=== PATIENT | female | born 1935 | race Caucasian/White ===

== ENCOUNTER 2023-08-01 17:58 | Inpatient (IN) | payer MEDICARE, SELFPAY ==
[2023-08-01] VITALS (7 sets, daily range): BP systolic 145–167; BP diastolic 48–101; PULSE 69–91; RESP 12–20; TEMP 37–37.1; O2SAT 95–97; BMI 22.1
--- NOTE | ~2023-08-01 | CT_ITS ---
EXAMINATION: CT abdomen pelvis wo con DATE: 08/01/2023 18:49 INDICATION: constipation, vomiting TECHNIQUE: Computed tomography (CT) of the abdomen and pelvis was performed without intravenous contr ast. Automated exposure control and iterative reconstruction technique were employed. The dose-length product was 408.80 mGy-cm. COMPARISON: None. FINDINGS: Lower thorax: Aortic and coronary artery calcification. Moderate hiatal hernia. Liver: Normal. Biliary/Gallbladder: Gallbladder is normal. No bile duct dilation. Pancreas: No mass or duct dilation. Spleen: Normal. Adrenals:Fat density left adrenal mass, consistent with an adenoma. Kidneys: 5.7 cm simple left midpole cyst. 1.8 cm indeterminate density left midpole renal mass. Small hyperdensities in the right midpole, likely representing proteinaceous or hemorrhagic cysts. GI tract: No small or large bowel dilation. A small normal-appearing appendiceal stump versus hypopla stic appendix is present. Diverticulosis without diverticulitis. Mesentery/Peritoneum: No ascites, mass, or free air. Retroperitoneum: No mass. Atherosclerotic abdominal aortic and/or arterial calcifications. Pelvis: Absent uterus. Wall thickening in an incompletely distended urinary bladder. Soft Tissues: Small uncomplicated fat-containing umbilical hernia. Bones: No acute osseous finding. Incompletely visualized but uncomplicated appearing left femoral dia rdware IMPRESSION: Bladder wall thickening, may be secondary to inadequate distention or cystitis. 1.8 cm indeterminate density left midpole mass. Recommend outpatient MRI or CT without and with contr ast for further evaluation. Reviewed, dictated and finalized at location K. IMPRESSION: Bladder wall thickening, may be secondary to inadequate distention or cystitis. 1.8 cm indeterminate density left midpole mass. Recommend outpatient MRI or CT without and with contrast for further evaluation.
--- NOTE | 2023-08-01 18:05 | ECG_ITS ---
Measurements Intervals [place] Rate: 72 P: 28 [place]: 229 QRS: -48 QRSD: 100 T: 53 QT: 400 QTc: 438 Interpretive Statements SINUS RHYTHM WITH FIRST DEGREE AV BLOCK INCOMPLETE RIGHT BUNDLE BRANCH BLOCK [90+ ms QRS DURATION, TERMINAL R IN V1/V2, 40+ ms S IN I/aVL/V4/V5/V6] LEFT ANTERIOR FASCICULAR BLOCK [QRS AXIS <= -45, QR IN I, RS IN II] ABNORMAL ECG NO PREVIOUS ECG AVAILABLE FOR COMPARISON Electronically Signed On 08-02-2023 7:05:08 CDT by Jorje Goss M.D.
[2023-08-01 18:22] LABS: Basophils Percent Auto 0.3 % (0.2-1.2); Hematocrit 27.4 % (37.0-47.0); Hemoglobin 8.7 g/dL (12.0-15.0); Immature Granulocyte Absolute 0.02 K/mm3 (0.00-0.031); Immature Granulocyte Percent A 0.2 % (0-0.5); Lymphocytes Absolute Auto 0.93 K/mm3 (0.9-3.2); Lymphocytes Percent Auto 9.7 % (18.3-44.2); Mean Corpuscular HGB Conc 31.8 g/dl (32-36); Mean Corpuscular Hemoglobin 29.5 pg (26-34); Mean Corpuscular Volume 92.9 fl (80-100); Mean Platelet Volume 10.3 fl (7.4-10.4); Monocytes Absolute Auto 1.6 K/mm3 (0.1-0.6); Monocytes Percent Auto 16.6 % (2.6-8.5); Neutrophils Percent Auto 73.2 % (45.5-73.1); Platelet Count Result 240 k/mm3 (150-375); Red Blood Count 2.95 M/mm3 (4.2-5.4); Red Cell Distribution Width 19.3 % (11.5-14.5); White Blood Count 9.6 K/mm3 (4.5-10.0)
--- NOTE | 2023-08-01 18:28 | ED.GENADULT ---
HPI - General Adult General Chief complaint: Nausea/Vomiting/Diarrhea Stated complaint: N/V, HUIZAR History of Present Illness HPI narrative: Patient is an 88-year-old female with history of dementia here with nausea and vomiting which occurred a few days ago. Patient and EMS note that she had some episodes of nausea and vomiting on and Wednesday. Patient notes that her last bowel movement was a few days ago. She currently denies any symptoms. She denies any current nausea or abdominal pain. The facility also noted that she has had some generalized fatigue and feeling unwell. Patient denies any cough, congestion, fever, chills. She does note some increased urinary frequency, no dysuria or hematuria. No chest pain or shortness of breath. Related Data Allergies Allergy/AdvReac Type Severity Reaction Status Date / Time Iodinated Contrast Media Allergy Unknown Verified 08/01/23 18:17 Review of Systems Review of Systems: All systems reviewed & are unremarkable except as noted in HPI and below Exam Narrative: GENERAL: Well-appearing, well-nourished, and in no acute distress. HEAD: Normocephalic, atraumatic. EYES: PERRLA and EOMI. ENT: Nares clear. Mucous membranes moist. NECK: Supple. CHEST: Clear to auscultation. No respiratory distress. HEART: Regular rate and rhythm. Normal peripheral pulses. ABDOMEN: Soft, nontender, nondistended. EXTREMITIES: Normal range of motion. No edema. SKIN: Warm, dry, no rash. NEURO: No focal deficits. Alert and oriented x3. PSYCH: Normal mood and affect. Course Course Emergency Course: Patient seen evaluated on arrival. In no acute distress, asymptomatic at this time. Given age, will workup for possible intraabdominal process including diverticular disease, bowel obstruction, UTI. No prior visits in our system. Initial blood pressure elevated to 152/101, otherwise normal. CBC grossly unremarkable aside from hemoglobin of 8.7, unsure of her baseline. Urine consistent with UTI. Will give 1g of rocephin while we await additional testing. Creatinine mildly elevated at 1.2, unsure of her baseline. CRP grossly normal. Initial troponin 0.036, no chest pain, will repeat. Swab for Covid, influenza, RSV negative. CT consistent with cystitis. Small left midpole kidney mass noted. Will inform patient and her family to have this followed with PCP. Patient tachycardic on the monitor to 110, I went to reevaluate her and she is holding an emesis bag, stating she just threw up. Will give IVF, zofran. Discussed case with patient and family at bedside. Given recurrent vomiting and need for IV abx, as well as mildly elevated troponin, will admit patient. They are agreeable. Spoke with Dr. De Santiago, accepts patient for hospitalization. Repeat troponin negative, daughter Nathalie Monteiro updated over the phone. I did ask patient her code status, she is unsure and would like to defer to her daughter. Vital Signs Vital signs: Vital Signs Temperature 98.6 F 08/01/23 18:12 Pulse Rate 91 08/01/23 18:12 Respiratory Rate 20 08/01/23 18:12 Blood Pressure 152/101 H 08/01/23 18:12 Pulse Oximetry 97 08/01/23 18:12 Oxygen Delivery Room Air 08/01/23 18:12 Temperature 98.6 F 08/01/23 18:12 Pulse Rate 78 08/01/23 21:42 Respiratory Rate 16 08/01/23 21:42 Blood Pressure 158/55 H 08/01/23 21:42 Pulse Oximetry 97 08/01/23 21:42 Oxygen Delivery Room Air 08/01/23 18:12 Medical Decision Making Vital Signs Vital Signs: Vital Signs Temperature 98.6 F 08/01/23 18:12 Pulse Rate 91 08/01/23 18:12 Respiratory Rate 20 08/01/23 18:12 Blood Pressure 152/101 H 08/01/23 18:12 Pulse Oximetry 97 08/01/23 18:12 Oxygen Delivery Room Air 08/01/23 18:12 Temperature 98.6 F 08/01/23 18:12 Pulse Rate 78 08/01/23 21:42 Respiratory Rate 16 08/01/23 21:42 Blood Pressure 158/55 H 08/01/23 21:42 Pulse Oximetry 97 08/01/23 21:42 Oxygen Delivery Room
[2023-08-01 18:31] LABS: Bacteria Urine 4+ /hpf; Need Manual Microscopic Reviewed; RBC Urine 51-100 /hpf (0-2); Squamous Epithelial Cell Urine Occasional /hpf (Few); WBC Urine 21-50 /hpf
[2023-08-01 18:34] LABS: INR 1.1; Prothrombin Time 14.3 Seconds (11.1-14.7)
[2023-08-01 18:35] LABS: Partial Thromboplastin Time 33.9 SECONDS (22.3-36.8)
[2023-08-01 18:36] LABS: Appearance Urine Turbid (Clear); Bilirubin Urine Negative (Negative); Blood Urine 3+ (Negative); Color Urine Yellow (Yellow); Glucose Urine UA Negative (Negative); Ketones Urine Trace mg/dL (Negative); Leukocyte Esterase Ur 3+ LEU/UL (Negative); Nitrate Urine Negative (Negative); Protein Urine 2+ mg/dL (Negative); Specific Grav Ur 1.014 (1.001-1.035); pH Urine 7.5 (5.0-9.0)
[2023-08-01 18:38] LABS: Add Urine Microscopic? YES
[2023-08-01 18:52] LABS: Alanine Aminotransferase 26 U/L (6-35); Albumin Level 4.1 g/dL (3.5-5.1); Alkaline Phosphatase 85 U/L (38-126); Anion Gap 8 mmol/L (8-16); Aspartate Amino Transferase 36 U/L (14-36); Bilirubin,Total 0.8 mg/dL (0.2-1.3); Blood Urea Nitrogen 26 mg/dL (7-17); CRP 2.3 mg/dL (<1.0); Calcium 8.4 mg/dL (8.4-10.2); Carbon Dioxide 24 mmol/L (22-30); Chloride 99 mmol/L (98-107); Estimated CRCL calculation 28 ml/min; Estimated Glomerular Filt Rate 43; Glucose 110 mg/dL (65-110); Lipase 217 U/L (23-300); Sodium 131 mmol/L (137-145); Troponin I 0.036 ng/mL (0.000-0.034)
[2023-08-01 19:00] LABS: Influenza A QL RT-PCR Negative (Negative); Influenza B QL RT-PCR Negative (Negative); RSV RNA, RT-PCR Negative (Negative); SARS-CoV-2 RNA PCR Negative (Negative)
--- NOTE | 2023-08-01 19:12 | PC.NURSE ---
Assumed care of pt at this time, report from Kimmie. Pt resting on stretcher, A&Ox4, with some confusion.
[2023-08-01] MEDS: SODIUM CHLORIDE 0.9% IV 1,000 ML 999 ML IV CONT (20:32)
[2023-08-01] MEDS: ONDANSETRON INJ 4 MG/2 ML VIAL IV PUSH (20:32)
--- NOTE | 2023-08-01 21:14 | PM.IMHP ---
H&P: HPI History of Present Illness Date/Time: 08/01/23 21:14 Chief Complaint: n/v Narrative: This is an 88 yo female with PMHx significant for HTN, Hypothyroidism, resides at [facility] facility. Patient brought to ED for evaluation due to n/v poor per oral intake, poor appetite, generalized malaise.In ED patient had broad work up done which revealed mildly elevated trop,urine analysis with numerous wbc's present.Patient has been admitted for further evaluation management and treatment. EXAMINATION: CT abdomen pelvis wo con DATE: 08/01/2023 18:49 INDICATION: constipation, vomiting TECHNIQUE: Computed tomography (CT) of the abdomen and pelvis was performed without intravenous contrast. Automated exposure control and iterative reconstruction technique were employed. The dose-length product was 408.80 mGy-cm. COMPARISON: None. FINDINGS: Lower thorax: Aortic and coronary artery calcification. Moderate hiatal hernia. Liver: Normal.? Biliary/Gallbladder: Gallbladder is normal. No bile duct dilation. Pancreas: No mass or duct dilation. Spleen: Normal. Adrenals:Fat density left adrenal mass, consistent with an adenoma. Kidneys: 5.7 cm simple left midpole cyst. 1.8 cm indeterminate density left midpole renal mass. Small hyperdensities in the right midpole, likely representing proteinaceous or hemorrhagic cysts. GI tract: No small or large bowel dilation. A small normal-appearing appendiceal stump versus hypoplastic appendix is present. Diverticulosis without diverticulitis. Mesentery/Peritoneum: No ascites, mass, or free air. Retroperitoneum: No mass. Atherosclerotic abdominal aortic and/or arterial calcifications. Pelvis: Absent uterus. Wall thickening in an incompletely distended urinary bladder. Soft Tissues: Small uncomplicated fat-containing umbilical hernia. Bones:? No acute osseous finding. Incompletely visualized but uncomplicated appearing left femoral hardware IMPRESSION: Bladder wall thickening, may be secondary to inadequate distention or cystitis. 1.8 cm indeterminate density left midpole mass. Recommend outpatient MRI or CT without and with contrast for further evaluation. Review of Systems Review of Systems: n/v Constitutional: Constitutional: Reports poor appetite and Reports weakness Eyes: Eyes: Denies change in vision ENT: Denies dysphagia, Denies vertigo, Denies dizziness and Denies odynophagia Cardiovascular: Cardiovascular: Denies chest pain, Denies radiating jaw, neck or arm pain and Denies palpitations Respiratory: Respiratory: Denies chest congestion, Denies cough, Denies excessive phlegm production and Denies dyspnea Gastrointestinal: Gastrointestinal: Denies abdominal pain, Denies dyspepsia, Denies heartburn, Denies diarrhea, Reports nausea and Reports vomiting Genitourinary: Genitourinary: Denies dysuria and Denies flank pain Musculoskeletal: Musculoskeletal: Denies back pain Integumentary/Breasts: Skin/Breast: Denies rash Neurologic: Denies vertigo, Denies dizziness, Denies focal weakness and Denies Sensory deficit (Neuro) Psychiatric: Psychiatric: Reports no additional psychiatric complaints and Reports as per HPI Endocrine: Endocrine: Denies cold intolerance, Denies flushing, Denies heat intolerance, Denies polyphagia, Denies polydipsia and Denies palpitations Hematologic/Lymphatic: Hematologic/Lymphatic: Reports no additional hematologic/lymphatic complaints and Reports as per HPI Allergic/Immunologic: Allergic/Immunologic: Reports no additional allergic/immunologic complaints and Reports as per HPI PMF Family History Family History (Updated 08/01/23 @ 22:34 by Tasha Calvillo RN) Father Diabetes mellitus Hypertension Coronary artery arteriosclerosis Sibling Diabetes mellitus Meds Home Medications and Allergies Home Medications Medication Instructions Recorded Confirmed Type aspirin 81 mg chewable tablet 81 mg PO DAILY 08/01/23 08/01/23 History citalop
[2023-08-01 21:39] LABS: Troponin I 0.029 ng/mL (0.000-0.034)
[2023-08-01] MEDS: ASPIRIN 81 MG CHEWABLE TABLET 324 MG PO (21:41)
--- NOTE | 2023-08-01 22:08 | ADMGEN ---
This patient, Raiza Sofia, was admitted to IMU Room 232-01. Patient/family oriented to hospital policies and general routines including ID bracelet, bed and alarms, visiting hours, pain management, procedures, bathroom and other care routines, personal items, smoking policy, room service/diet, and visiting hours. Information on how to activate the Rapid Response Team has been discussed. Patient/Family are encouraged to report perceived risks to care and to ask questions if they do not understand what they are told or what they should do.
[2023-08-02] VITALS (11 sets, daily range): BP systolic 126–196; BP diastolic 45–90; PULSE 67–86; RESP 14–20; TEMP 36.6–37; O2SAT 95–100
--- NOTE | 2023-08-02 | ECHO_ITS ---
Patient Info Name: Raiza Sofia Age: 88 years : 1935 Gender: Female Ht: 67 in Wt: 141 lbs BSA: 1.74 m2 HR: 83 bpm BP: 175 / 63 mmHg Heart Rhythm: Sinus Rhythm Technical Quality: Fair Exam Date: 08/02/2023 10:35 AM Exam Location: [facility] Pulmonary Exam Room: 232 Patient Status: Inpatient Admit Date: 08/01/2023 Staff Ordering Physician: Balta De Santiago MD Quality Control Specialist: Marcela Bryson RDCS Attending Provider: Balta De Santiago MD Referring Physician: Anyi MILTON; Exam Type: CA echo doppler color flow Study Info Indications - AM ELEVATED TROPONINS Complete two-dimensional, color flow and Doppler transthoracic echocardiogram is performed. Summary 1. Complete two-dimensional, color flow and Doppler transthoracic echocardiogram is performed. 2. Normal left ventricular size thickness and systolic function. 3. Grade 1 diastolic noncompliance. 4. Mildly sclerotic but nonstenotic aortic valve. Left Ventricle Left ventricular chamber dimension is normal. Left ventricular systolic function is normal, estimated at 65-70%. The left ventricular diastolic function is grade I diastolic dysfunction. Right Ventricle Right ventricular chamber dimension is normal. Left Atria Left atrial chamber dimension is normal. Right Atria Right atrial chamber dimension is normal. Aortic Valve The aortic valve is trileaflet. There is mild aortic valve sclerosis. Pulmonic Valve The pulmonic valve is not well visualized. Mitral Valve The mitral valve has normal leaflets. Tricuspid Valve The tricuspid valve leaflets are normal. Pericardium/Pleural The pericardium appears normal. Aorta The aortic root size at the sinus of Valsalva is normal. Left Ventricular Outflow Tract Name Value Normal LVOT 2D LVOT Diameter 2.0 cm LVOT Doppler LVOT Peak Gradient 5 mmHg LVOT Mean Gradient 3 mmHg LVOT VTI 26 cm LVOT VTI/AV VTI Ratio 0.6 LVOT Stroke Volume 84 ml LVOT CO 17.0 l/min LVOT CI 9.8 l/min/m2 Pulmonic Valve Name Value Normal RVOT Doppler RVOT Peak Gradient 1 mmHg PV Doppler PV Peak Gradient 3 mmHg Mitral Valve Name Value Normal MV Doppler MV Decel [place] 289 cm/s2 MV PHT 83 ms MV Area (PHT) 2.7 cm2 4.0-5.0 MV Diastolic Function
[2023-08-02] MEDS: LEVOTHYROXINE SODIUM 25 MCG TABLET PO (05:19)
[2023-08-02] MEDS: LOSARTAN POTASSIUM 50 MG TABLET PO (05:19)
--- NOTE | 2023-08-02 07:37 | PC.NURSE ---
Spoke with Nathalie Monteiro (daughter). Update given about patient care through the night.
[2023-08-02] MEDS: CHOLECALCIFEROL 1,000 UNITS TABLET 2000 UNITS PO (09:08)
[2023-08-02] MEDS: CITALOPRAM HYDROBROMIDE 20 MG TABLET PO (09:08)
[2023-08-02] MEDS: ASPIRIN 81 MG CHEWABLE TABLET PO (09:08)
--- NOTE | 2023-08-02 13:38 | PM.IMPN ---
Progress Note: A&P Assessment and Plan (1) Acute urinary tract infection: Code(s): N39.0 - Urinary tract infection, site not specified Status: Acute (2) N&V (nausea and vomiting): Code(s): R11.2 - Nausea with vomiting, unspecified Status: Acute (3) Poor appetite: Code(s): R63.0 - Anorexia Status: Acute (4) Elevated troponin: Code(s): R79.89 - Other specified abnormal findings of blood chemistry Status: Acute Plan 88-year-old female with history of dementia presented with nausea and vomiting since few days. No diarrhea. No abdominal pain. Has some generalized fatigue and feeling unwell. No fever chills cough shortness of breath. Anemia noted. UA positive for UTI started on Rocephin. CKD stage 3 creatinine 1.2. Initial troponin 0.036 followed by normal troponin level. CT abdomen pelvis with cystitis small left mid pole kidney mass noted. Continued intractable nausea vomiting admitted for treatment. Will continue Zofran p.r.n. EKG with nonspecific ST-T changes. Echo pending Left mid pole 5.7 cm cyst 1.8 cm indeterminate density left mid pole renal mass. Follow-up with urology as an outpatient basis DVT prophylaxis Lovenox Code status do not resuscitate Subjective Date/time seen: 08/02/23 13:38 Interval history: Feels better today. No chest pain shortness of breath. No more nausea vomiting. Review of Systems Review of Systems: All systems reviewed & are unremarkable except as noted in HPI and below Exam Narrative: GENERAL: The patient is well developed, not in acute distress HEENT: Nonicteric sclerae, PERRLA, EOMI. Oropharynx clear. Moist mucous membranes. Conjunctivae appear well perfused. CHEST: Chest wall is nontender. HEART: Regular rate and rhythm without murmur, rubs, or gallops LUNGS: Clear to auscultation bilaterally. no respiratory distress ABDOMEN: Soft, positive bowel sounds, non-tender, no organomegaly. SKIN: No rash, no excessive bruising, petechiae, or purpura. NEUROLOGIC: Cranial nerves II-XII intact, alert and oriented x 3, no gross motor deficits EXTREMITIES: no edema, cyanosis or clubbing Objective Data Vital Signs Vital Signs: Vital Signs - 24 hr 08/01/23 18:12 08/01/23 19:12 08/01/23 20:48 Temperature 98.6 F Pulse Rate 91 69 83 Respiratory Rate 20 19 12 Blood Pressure 152/101 H 167/48 H 152/61 H Pulse Oximetry 97 97 96 Oxygen Delivery Room Air 08/01/23 21:42 08/01/23 22:15 08/02/23 00:00 Temperature 98.8 F 98.2 F Pulse Rate 78 74 71 Respiratory Rate 16 16 16 Blood Pressure 158/55 H 145/53 H 144/45 H Pulse Oximetry 97 95 100 Oxygen Delivery 08/01/23 22:30 08/01/23 22:12 08/02/23 00:00 Temperature Pulse Rate 75 67 Respiratory Rate Blood Pressure Pulse Oximetry 95 Oxygen Delivery Room Air 08/02/23 00:00 08/02/23 02:00 08/02/23 04:00 Temperature 98.2 F Pulse Rate 70 76 Respiratory Rate 18 Blood Pressure 196/55 H Pulse Oximetry 100 97 Oxygen Delivery Room Air 08/02/23 05:03 08/02/23 04:00 08/02/23 04:00 Temperature Pulse Rate 84 83 Respiratory Rate 20 Blood Pressure 175/63 H Pulse Oximetry 96 96 Oxygen Delivery Room Air 08/02/23 06:00 08/02/23 08:00 08/02/23 12:00 Temperature 97.9 F 98.6 F Pulse Rate 74 70 69 Respiratory Rate 16 14 Blood Pressure 148/83 H 152/80 H Pulse Oximetry 95 96 Oxygen Delivery 08/02/23 08:00 08/02/23 08:00 08/02/23 10:00 Temperature Pulse Rate 69 70 Respiratory Rate Blood Pressure Pulse Oximetry 96 Oxygen Delivery Room Air Intake/Output Intake/Output: Intake & Output 07/30/23 07/31/23 08/01/23 08/02/23 23:59 23:59 23:59 23:59 Intake Total 1050 120 Output Total 200 900 Balance 850 -780 Meds/Results Medications: Active Medications Generic Name Dose Route Start Last Admin Trade Name Freq PRN Reason Stop Dose Admin Aspirin 81 mg 08/02/23 09:00 08/02/23 09:08 Aspi
[2023-08-02] MEDS: ONDANSETRON INJ 4 MG/2 ML VIAL IV PUSH (14:02)
[2023-08-02 14:32] LABS: Basophils Percent Auto 0.3 % (0.2-1.2); Hematocrit 28.7 % (37.0-47.0); Hemoglobin 9.1 g/dL (12.0-15.0); Immature Granulocyte Absolute 0.02 K/mm3 (0.00-0.031); Immature Granulocyte Percent A 0.3 % (0-0.5); Lymphocytes Absolute Auto 0.75 K/mm3 (0.9-3.2); Lymphocytes Percent Auto 9.9 % (18.3-44.2); Mean Corpuscular HGB Conc 31.7 g/dl (32-36); Mean Corpuscular Hemoglobin 29.1 pg (26-34); Mean Corpuscular Volume 91.7 fl (80-100); Mean Platelet Volume 10.7 fl (7.4-10.4); Monocytes Absolute Auto 1.1 K/mm3 (0.1-0.6); Monocytes Percent Auto 14.6 % (2.6-8.5); Neutrophils Absolute Auto 5.7 K/mm3 (1.3-6.7); Neutrophils Percent Auto 74.9 % (45.5-73.1); Platelet Count Result 247 k/mm3 (150-375); Red Blood Count 3.13 M/mm3 (4.2-5.4); Red Cell Distribution Width 19.2 % (11.5-14.5); White Blood Count 7.6 K/mm3 (4.5-10.0)
[2023-08-02 14:43] LABS: Alanine Aminotransferase 24 U/L (6-35); Albumin Level 4.1 g/dL (3.5-5.1); Alkaline Phosphatase 81 U/L (38-126); Anion Gap 9 mmol/L (8-16); Aspartate Amino Transferase 34 U/L (14-36); Bilirubin,Total 0.8 mg/dL (0.2-1.3); Blood Urea Nitrogen 22 mg/dL (7-17); Calcium 8.5 mg/dL (8.4-10.2); Carbon Dioxide 25 mmol/L (22-30); Chloride 98 mmol/L (98-107); Estimated CRCL calculation 35 ml/min; Estimated Glomerular Filt Rate 53; Glucose 127 mg/dL (65-110); Potassium 3.7 mmol/L (3.4-5.0); Sodium 132 mmol/L (137-145)
--- NOTE | 2023-08-02 15:12 | PC.NURSE ---
orders to transfer to med/tele- report given to Angie RN- called pt's daughter Nathalie and informed of transfer to room 259- pt transferred via bed accompanied by staff to [facility]/ med/tele
--- NOTE | 2023-08-02 15:50 | PC.NURSE ---
This patient, Raiza Sofia, was received from IMU on 08/02/23 at 1550. Patient/family oriented to unit policies and routines
[2023-08-02] MEDS: SIMVASTATIN 20 MG TABLET 40 MG PO (20:13)
[2023-08-02] MEDS: GABAPENTIN 300 MG CAPSULE PO (20:14)
[2023-08-02] MEDS: ACETAMINOPHEN 325 MG TABLET 650 MG PO (21:14)
[2023-08-03] VITALS (8 sets, daily range): BP systolic 151–179; BP diastolic 55–61; PULSE 59–93; RESP 17–18; TEMP 36.4–36.8; O2SAT 93–95
[2023-08-03] MEDS: LEVOTHYROXINE SODIUM 25 MCG TABLET PO (05:33)
[2023-08-03 08:24] LABS: Basophils Percent Auto 0.5 % (0.2-1.2); Eosinophils Percent Auto 0.5 % (0-4.4); Hematocrit 27.1 % (37.0-47.0); Hemoglobin 8.7 g/dL (12.0-15.0); Immature Granulocyte Absolute 0.01 K/mm3 (0.00-0.031); Immature Granulocyte Percent A 0.2 % (0-0.5); Lymphocytes Absolute Auto 0.84 K/mm3 (0.9-3.2); Lymphocytes Percent Auto 13.8 % (18.3-44.2); Mean Corpuscular HGB Conc 32.1 g/dl (32-36); Mean Corpuscular Hemoglobin 29.1 pg (26-34); Mean Corpuscular Volume 90.6 fl (80-100); Mean Platelet Volume 10.1 fl (7.4-10.4); Monocytes Absolute Auto 1.1 K/mm3 (0.1-0.6); Monocytes Percent Auto 17.3 % (2.6-8.5); Neutrophils Absolute Auto 4.1 K/mm3 (1.3-6.7); Neutrophils Percent Auto 67.7 % (45.5-73.1); Platelet Count Result 225 k/mm3 (150-375); Red Blood Count 2.99 M/mm3 (4.2-5.4); Red Cell Distribution Width 19.6 % (11.5-14.5); White Blood Count 6.1 K/mm3 (4.5-10.0)
[2023-08-03] MEDS: CHOLECALCIFEROL 1,000 UNITS TABLET 2000 UNITS PO (08:42)
[2023-08-03] MEDS: ASPIRIN 81 MG CHEWABLE TABLET PO (08:42)
[2023-08-03] MEDS: LOSARTAN POTASSIUM 50 MG TABLET PO (08:42)
[2023-08-03] MEDS: CITALOPRAM HYDROBROMIDE 20 MG TABLET PO (08:44)
[2023-08-03] MEDS: ENOXAPARIN 30 MG/0.3 ML SYRINGE SUB-Q (08:44)
[2023-08-03 09:03] LABS: Alanine Aminotransferase 21 U/L (6-35); Albumin Level 3.7 g/dL (3.5-5.1); Alkaline Phosphatase 72 U/L (38-126); Anion Gap 8 mmol/L (8-16); Aspartate Amino Transferase 31 U/L (14-36); Bilirubin,Total 0.6 mg/dL (0.2-1.3); Blood Urea Nitrogen 21 mg/dL (7-17); Calcium 8.3 mg/dL (8.4-10.2); Carbon Dioxide 23 mmol/L (22-30); Chloride 101 mmol/L (98-107); Estimated CRCL calculation 35 ml/min; Estimated Glomerular Filt Rate 53; Glucose 95 mg/dL (65-110); Magnesium 2.1 mg/dL (1.6-2.3); Potassium 3.9 mmol/L (3.4-5.0); Sodium 132 mmol/L (137-145)
--- NOTE | 2023-08-03 13:48 | PM.IMPN ---
Progress Note: A&P Assessment and Plan (1) Acute urinary tract infection: Code(s): N39.0 - Urinary tract infection, site not specified Status: Acute (2) N&V (nausea and vomiting): Code(s): R11.2 - Nausea with vomiting, unspecified Status: Acute (3) Poor appetite: Code(s): R63.0 - Anorexia Status: Acute (4) Elevated troponin: Code(s): R79.89 - Other specified abnormal findings of blood chemistry Status: Acute Plan 88-year-old female with history of dementia presented with nausea and vomiting since few days. No diarrhea. No abdominal pain. Has some generalized fatigue and feeling unwell. No fever chills cough shortness of breath. Anemia noted. UA positive for UTI started on Rocephin. CKD stage 3 creatinine 1.2. Initial troponin 0.036 followed by normal troponin level. CT abdomen pelvis with cystitis small left mid pole kidney mass noted. Continued intractable nausea vomiting admitted for treatment. Will continue Zofran p.r.n. EKG with nonspecific ST-T changes. Echo 08/02/2023 with normal ejection fraction grade 1 diastolic noncompliance no significant valvular abnormality. Dysphagia will get esophagogram further evaluate. Will add PPI Left mid pole 5.7 cm cyst 1.8 cm indeterminate density left mid pole renal mass. Follow-up with urology as an outpatient basis DVT prophylaxis Lovenox Code status do not resuscitate Subjective Date/time seen: 08/03/23 13:48 Interval history: reports some dysphagia. Some nausea persist but no vomiting. Tolerated diet yesterday. Dysphagia and intermittent unclear how long this been going on Review of Systems Review of Systems: All systems reviewed & are unremarkable except as noted in HPI and below Exam Narrative: GENERAL: The patient is well developed, not in acute distress HEENT: Nonicteric sclerae, PERRLA, EOMI. Oropharynx clear. Moist mucous membranes. Conjunctivae appear well perfused. CHEST: Chest wall is nontender. HEART: Regular rate and rhythm without murmur, rubs, or gallops LUNGS: Clear to auscultation bilaterally. no respiratory distress ABDOMEN: Soft, positive bowel sounds, non-tender, no organomegaly. SKIN: No rash, no excessive bruising, petechiae, or purpura. NEUROLOGIC: Cranial nerves II-XII intact, alert and oriented x 3, no gross motor deficits EXTREMITIES: no edema, cyanosis or clubbing Objective Data Vital Signs Vital Signs: Vital Signs - 24 hr 08/02/23 14:00 08/02/23 16:00 08/02/23 20:00 Temperature 98.6 F Pulse Rate 76 76 81 Respiratory Rate 18 Blood Pressure 126/90 Pulse Oximetry 96 Oxygen Delivery 08/02/23 20:06 08/02/23 20:00 08/03/23 00:00 Temperature Pulse Rate 86 67 Respiratory Rate Blood Pressure Pulse Oximetry Oxygen Delivery Room Air 08/03/23 04:00 08/03/23 05:22 08/03/23 08:40 Temperature 98.2 F Pulse Rate 59 L 72 73 Respiratory Rate 17 Blood Pressure 153/61 H 179/59 H Pulse Oximetry 95 93 Oxygen Delivery 08/03/23 08:00 Temperature Pulse Rate Respiratory Rate Blood Pressure Pulse Oximetry Oxygen Delivery Room Air Intake/Output Intake/Output: Intake & Output 07/31/23 08/01/23 08/02/23 08/03/23 23:59 23:59 23:59 23:59 Intake Total 1050 270 660 Output Total 200 900 Balance 850 -711 660 Meds/Results Medications: Active Medications Generic Name Dose Route Start Last Admin Trade Name Freq PRN Reason Stop Dose Admin Acetaminophen 650 mg 08/02/23 20:44 08/02/23 21:14 Acetaminophen 325 Mg Tablet PO 650 mg Q4H PRN Administration pain or fever Aspirin 81 mg 08/02/23 09:00 08/03/23 08:42 Aspirin 81 Mg Chewable Tablet PO 81 mg DAILY LORENA Administration Citalopram Hydrobromide 20 mg 08/02/23 09:00 08/03/23 08:44 Citalopram Hydrobromide 20 Mg Tablet PO 20 mg DAILY LORENA Administration Enoxaparin Sodium 30 mg 08/03/23 09:00 08/03/23 08:44 Enoxaparin 30 Mg/0.3 Ml Sy
[2023-08-03] MEDS: PANTOPRAZOLE 40 MG TABLET PO (14:12)
[2023-08-03] MEDS: ONDANSETRON INJ 4 MG/2 ML VIAL IV PUSH (21:30)
[2023-08-03] MEDS: GABAPENTIN 300 MG CAPSULE PO (21:30)
[2023-08-03] MEDS: SIMVASTATIN 20 MG TABLET 40 MG PO (21:30)
[2023-08-04 00:04] VITALS: PULSE 78
[2023-08-04 04:00] VITALS: PULSE 63
[2023-08-04 05:12] LABS: Basophils Percent Auto 0.6 % (0.2-1.2); Eosinophils Percent Auto 0.4 % (0-4.4); Hematocrit 29.5 % (37.0-47.0); Hemoglobin 9.3 g/dL (12.0-15.0); Immature Granulocyte Absolute 0.03 K/mm3 (0.00-0.031); Immature Granulocyte Percent A 0.4 % (0-0.5); Lymphocytes Absolute Auto 1.42 K/mm3 (0.9-3.2); Lymphocytes Percent Auto 19.9 % (18.3-44.2); Mean Corpuscular HGB Conc 31.5 g/dl (32-36); Mean Corpuscular Hemoglobin 28.9 pg (26-34); Mean Corpuscular Volume 91.6 fl (80-100); Mean Platelet Volume 10.7 fl (7.4-10.4); Monocytes Absolute Auto 1.1 K/mm3 (0.1-0.6); Monocytes Percent Auto 15.3 % (2.6-8.5); Neutrophils Absolute Auto 4.5 K/mm3 (1.3-6.7); Neutrophils Percent Auto 63.4 % (45.5-73.1); Platelet Count Result 251 k/mm3 (150-375); Red Blood Count 3.22 M/mm3 (4.2-5.4); Red Cell Distribution Width 19.3 % (11.5-14.5); White Blood Count 7.1 K/mm3 (4.5-10.0)
[2023-08-04 05:24] LABS: Alanine Aminotransferase 19 U/L (6-35); Albumin Level 3.8 g/dL (3.5-5.1); Alkaline Phosphatase 71 U/L (38-126); Anion Gap 8 mmol/L (8-16); Aspartate Amino Transferase 28 U/L (14-36); Bilirubin,Total 0.6 mg/dL (0.2-1.3); Blood Urea Nitrogen 20 mg/dL (7-17); Calcium 8.3 mg/dL (8.4-10.2); Carbon Dioxide 24 mmol/L (22-30); Chloride 100 mmol/L (98-107); Estimated CRCL calculation 32 ml/min; Estimated Glomerular Filt Rate 47; Glucose 84 mg/dL (65-110); Magnesium 2.3 mg/dL (1.6-2.3); Potassium 3.8 mmol/L (3.4-5.0); Sodium 132 mmol/L (137-145)
[2023-08-04] MEDS: LEVOTHYROXINE SODIUM 25 MCG TABLET PO (05:33)
[2023-08-04 08:00] VITALS: BP 135/63; PULSE 67; PULSE 71; RESP 14; TEMP 36.8; O2SAT 95
[2023-08-04] MEDS: ASPIRIN 81 MG CHEWABLE TABLET PO (11:30)
[2023-08-04] MEDS: CHOLECALCIFEROL 1,000 UNITS TABLET 2000 UNITS PO (11:30)
[2023-08-04] MEDS: ENOXAPARIN 30 MG/0.3 ML SYRINGE SUB-Q (11:30)
[2023-08-04] MEDS: LOSARTAN POTASSIUM 50 MG TABLET PO (11:30)
[2023-08-04] MEDS: CITALOPRAM HYDROBROMIDE 20 MG TABLET PO (11:30)
[2023-08-04] MEDS: PANTOPRAZOLE 40 MG TABLET PO (11:31)
[2023-08-04] MEDS: ONDANSETRON INJ 4 MG/2 ML VIAL IV PUSH (11:33)
--- NOTE | 2023-08-04 11:48 | PM.DS ---
DS: Admitting Diagnosis Discharge Date 08/04/23 Admitting Diagnosis nausea DS: Discharge Diagnosis Discharge Diagnosis (1) Elevated troponin: Code(s): R79.89 - Other specified abnormal findings of blood chemistry Status: Acute (2) Poor appetite: Code(s): R63.0 - Anorexia Status: Acute (3) N&V (nausea and vomiting): Code(s): R11.2 - Nausea with vomiting, unspecified Status: Acute (4) Acute urinary tract infection: Code(s): N39.0 - Urinary tract infection, site not specified Status: Acute (5) Left kidney mass: Code(s): N28.89 - Other specified disorders of kidney and ureter Status: Acute DS: Summary Hospital Course Hospital Course: 88F w/ PMH HTN, hypothyroidism presented with nausea and vomiting. she was dx with UTI and treated inpatient with ceftraixone. urine cultures were not helpful. she improved, discharged home in stable condition on 08/04 with another 2 days of macrobid. she is to f/u with PCP for this issue and an incidental left kidney cyst in 1 week. More than 30 minutes spent on discharge planning and documentation. Time Spent with Patient Time attestation: Total time spent providing and/or coordinating discharge services: Exam Const: General: cooperative and no acute distress Resp: Effort & Inspection: normal respiratory effort Auscultation: clear to auscultation bilaterally Cardio: Rate: regular rate Rhythm: regular rhythm Heart sounds: S1 normal heart sound present and S2 normal heart sound present GI: GI Palp: No abdominal tenderness Auscultation: normal bowel sounds DS: Data Data Completed and Pending Labs on day of discharge: Labs from last 24 hours 08/04/23 04:30 WBC 7.1 RBC 3.22 L Hgb 9.3 L Hct 29.5 L MCV 91.6 MCH 28.9 MCHC 31.5 L RDW 19.3 H Plt Count 251 MPV 10.7 H Immature Gran % (Auto) 0.4 Neut % (Auto) 63.4 Lymph % (Auto) 19.9 [place]ff[place] % (Auto) 15.3 H Eos % (Auto) 0.4 Baso % (Auto) 0.6 Lymph # (Auto) 1.42 [place]ffie # (Auto) 1.1 H Eos # (Auto) 0.0 Baso # (Auto) 0.0 Abs Immat Gran (auto) 0.03 Absolute Neuts (auto) 4.5 Absolute Nucleated RBC 0.0 Nucleated RBC % 0.0 Sodium 132 L Potassium 3.8 Chloride 100 Carbon Dioxide 24 Anion Gap 8 BUN 20 H Creatinine 1.10 H Estim Creat Clear Calc 32 Estimated GFR 47 L Glucose 84 Calcium 8.3 L Magnesium 2.3 Total Bilirubin 0.6 AST 28 ALT 19 Alkaline Phosphatase 71 Total Protein 7.0 Albumin 3.8 Preliminary micro results at discharge 08/01/23 21:09 Blood Culture - Preliminary Blood 08/01/23 21:09 Blood Culture - Preliminary Blood Discharge Plan Discharge Attending physician on discharge: Marcy Sahni Discharging Clinician: Marcy Sahni Patient Disposition: Home, Self-Care Activity: may shower Diet: as tolerated Patient Instructions: Antibiotic Form, Pain Management (GEN) Stand Alone Forms: General Discharge Information Follow-up/Referrals: Maurilio,Usha Cooper MD [Primary Care Provider] - 1 Week (follow up on kidney cyst and UTI) Discharge Medications: New nitrofurantoin macrocrystal 100 mg capsule 100 mg PO Q12H 2 Days Qty: 4 0RF Rx Instructions: must administer with a meal/food Continued losartan 50 mg tablet 50 mg PO DAILY simvastatin 40 mg tablet 40 mg PO HS levothyroxine 25 mcg tablet 0.025 mcg PO DAILY gabapentin 300 mg capsule 300 mg PO HS citalopram 20 mg tablet 20 mg PO DAILY aspirin 81 mg tablet,chewable 81 mg PO DAILY ergocalciferol (vitamin D2) 50 mcg (2,000 unit) Capsule 50 mcg PO DAILY Date of admission: 08/01/23 21:24 Primary Care Provider: Maurilio,Usha Cooper Admitting Provider: Balta De Santiago V. Attending physician on admission: Balta De aSntiago V. Condition: Stable
[2023-08-04 12:00] VITALS: PULSE 69
[2023-08-04 16:00] VITALS: PULSE 83
== END 2023-08-04 19:00 | DRG 690 ==
LOC: ANHED 18:47 → ANHIMU 21:43 → ANH2MED 08-02 15:08
PROVIDERS: Internal Medicine; Admitting Provider Internal Medicine; Emergency Provider Student in an Organized Health Care Education/Training Program; PCP Family Medicine; Visit Provider General Practice
DX: N39.0 Urinary tract infection, site not specified (principal); R63.0 Anorexia; R79.89 Other specified abnormal findings of blood chemistry; N28.1 Cyst of kidney, acquired; F03.90 Unspecified dementia, unspecified severity, without behavioral disturbance, psychotic disturbance, mood disturbance, and anxiety; R00.0 Tachycardia, unspecified; E03.9 Hypothyroidism, unspecified; I12.9 Hypertensive chronic kidney disease with stage 1 through stage 4 chronic kidney disease, or unspecified chronic kidney disease; N18.30 Chronic kidney disease, stage 3 unspecified; R13.10 Dysphagia, unspecified; Z66 Do not resuscitate
CPT/HCPCS: 36415; 74176; 80053; 81001; 83690; 83735; 84484; 85025; 85610; 85730; 86140; 87040; 87086; 87088; 87637; 93005; 93306; 96365; 96375; 99285; A9270; J0696; J1650; J2405; J7030